=== PATIENT | female | born 2000 | race Caucasian/White ===

== ENCOUNTER 2018-07-09 00:26 | Emergency (ER) | payer OTHER ==
[~2018-07-09] VITALS: Ht 152.4 cm; Wt 41.6 kg
[2018-07-09 01:41] LABS: BASOPHILS # (AUTO) 0.02 x10^3/uL (0-0.3); BASOPHILS % (AUTO) 0 % (0-1); EOSINOPHILS # (AUTO) 0.37 x10^3/uL (0-0.8); EOSINOPHILS % (AUTO) 5 % (1-7); LYMPHOCYTES # (AUTO) 2.45 x10^3/uL (1-6.1); LYMPHOCYTES % (AUTO) 33 % (22-44); MD NO; MEAN CORPUSCULAR HEMOGLOBIN 30.3 pg (27.0-34.8); MEAN CORPUSCULAR HGB CONC 34.1 g/dL (32.4-35.8); MEAN CORPUSCULAR VOLUME 88.9 fL (80-100); MEAN PLATELET VOLUME 8.4 fL (7.4-10.4); MONOCYTES # (AUTO) 0.56 x10^3/uL (0-1.4); MONOCYTES % (AUTO) 7 % (2-9); NEUTROPHILS # (AUTO) 4.07 x10^3/uL (1.8-8.0); NEUTROPHILS % (AUTO) 55 % (42-75); PLATELET COUNT 258 x10^3/uL (130-400); RED BLOOD COUNT 4.24 x10^6/uL (3.82-5.3)
[2018-07-09 01:53] LABS: ALANINE AMINOTRANSFERASE 19 U/L (12-78); ALBUMIN 3.2 g/dL (3.4-5.0); ANION GAP 8 mmol/L (5-15); CALCIUM 8.1 mg/dL (8.5-10.1); CHLORIDE 107 mmol/L (98-107); CREATININE 0.98 mg/dL (0.55-1.02)
[2018-07-09 01:58] LABS: ALKALINE PHOSPHATASE 71 U/L (45-117); BILIRUBIN,TOTAL 0.2 mg/dL (0.2-1.0); TOTAL PROTEIN 7.1 g/dL (6.4-8.2)
[2018-07-09 03:05] VITALS: BP 115/72
[2018-07-09 03:07] LABS: MICROSCOPIC NOT IND
[2018-07-09 03:15] LABS: CULTURE INDICATED? NO
== END 2018-07-09 03:56 | disposition home or self-care (01) ==
LOC: ED 02:58
DX: M94.0 Chondrocostal junction syndrome [Tietze] (principal); R10.13 Epigastric pain; R07.2 Precordial pain; F41.9 Anxiety disorder, unspecified; Z87.39 Personal history of other diseases of the musculoskeletal system and connective tissue
CPT/HCPCS: 36415; 71045; 76830; 80053; 81003; 83690; 84703; 85025; 93005; 99285